=== PATIENT | male | born 2000 | race Caucasian/White ===

== ENCOUNTER 2018-11-21 17:07 | Emergency (ER) | payer OTHER ==
[~2018-11-21] VITALS: Ht 188 cm; Wt 68.0 kg
[~2018-11-21 17:07] MED LIST: PEPCID20 MG PO
[2018-11-21 17:29] LABS: URINE BILIRUBIN NEGATIVE (Negative); URINE BLOOD NEGATIVE (Negative); URINE CLARITY CLEAR; URINE COLOR YELLOW; URINE GLUCOSE-RANDOM NEGATIVE (Negative); URINE KETONES NEGATIVE (Negative); URINE LEUKOCYTES-REFLEX NEGATIVE (Negative); URINE NITRITE-REFLEX NEGATIVE (Negative); URINE PROTEIN NEGATIVE (Negative); URINE SPECIFIC GRAVITY >= 1.030 (1.005-1.030); URINE UROBILINOGEN 0.2 E.U./dl (0.2-1.0)
[2018-11-21 17:52] LABS: INFLUENZA A ANTIGEN None Detected (None Detect); INFLUENZA B ANTIGEN None Detected (None Detect)
[2018-11-21] MEDS ORDERED: ZOFRAN ODT4 MG PO (18:06)
[2018-11-21 18:35] VITALS: BP 100/46
[2018-11-21 19:45] LABS: AMP/METHAMP Negative (Negative); BARBITURATES Negative (Negative); BENZODIAZEPINES Negative (Negative); COCAINE Negative (Negative); METHADONE Negative (Negative); OPIATES Negative (Negative); PCP Negative (Negative); THC Negative (Negative)
== END 2018-11-21 18:36 | disposition home or self-care (01) ==
LOC: M.ERS 17:07
PROVIDERS: Nurse Practitioner Family
DX: B34.9 Viral infection, unspecified (principal); Z88.1 Allergy status to other antibiotic agents